=== PATIENT | female | born 1950 | race Hispanic/Latino ===

== ENCOUNTER 2018-03-24 12:15 | Emergency (ER) | payer MEDICARE ==
[~2018-03-24] VITALS: Ht 152.4 cm; Wt 81.6 kg
== END 2018-03-24 13:17 | disposition home or self-care (01) ==
LOC: FSED 12:15
DX: K04.7 Periapical abscess without sinus (principal); K02.9 Dental caries, unspecified; I50.22 Chronic systolic (congestive) heart failure
CPT/HCPCS: 99281

== ENCOUNTER → 2018-06-29 | Day surgery (SDC) | payer MEDICARE ==
[~2018-06-29] MED LIST: ASPIR 8181 MG PO; COQ-10 PO; FISH OIL PO; LASIX20 MG PO; LISINOPRIL5 MG PO; METOPROLOL SUC100 MG PO; MIDAZOLAM HCL 2 MG/2 ML VIAL ONE; MVI; OMEGA 3 PO; PROPOFOL IV EMULSION 10 MG/ML 50 ML VIAL ONE; PRUNELAX PO; SPIRONOLACTONE25 MG PO; VITAMIN D PO
[2018-06-29 08:15] VITALS: BP 103/60
== END | disposition home or self-care (01) ==
LOC: OR 05:09
PROVIDERS: ATTEND Internal Medicine Gastroenterology
DX: R19.5 Other fecal abnormalities (principal); K29.50 Unspecified chronic gastritis without bleeding; B96.81 Helicobacter pylori [H. pylori] as the cause of diseases classified elsewhere; K21.9 Gastro-esophageal reflux disease without esophagitis; K57.30 Diverticulosis of large intestine without perforation or abscess without bleeding; K64.8 Other hemorrhoids; K44.9 Diaphragmatic hernia without obstruction or gangrene; Z71.3 Dietary counseling and surveillance; E66.9 Obesity, unspecified; I11.0 Hypertensive heart disease with heart failure; I50.9 Heart failure, unspecified; J44.9 Chronic obstructive pulmonary disease, unspecified; I48.91 Unspecified atrial fibrillation; Z79.82 Long term (current) use of aspirin; Z68.35 Body mass index [BMI] 35.0-35.9, adult; Z95.810 Presence of automatic (implantable) cardiac defibrillator
CPT/HCPCS: 43239; 45378; 88305; 88312; 93005; J2250; J2704